=== PATIENT | male | born 1950 | race Caucasian/White ===

== ENCOUNTER 2017-02-06 16:38 | Inpatient (IN) | payer OTHER ==
[2017-02-06 19:02] LABS: BILIRUBIN - TOTAL 0.9 mg/dL (0.1-1.0); CREATININE 0.9 mg/dL (0.7-1.2); GLOBULIN (CALCULATION) 2.8 g/dL (2.2-4.2); MAGNESIUM 1.84 mg/dL (1.40-2.10); POTASSIUM 3.7 mmol/L (3.5-5.1); TOTAL PROTEIN 6.8 g/dL (6.4-8.3)
[2017-02-06 19:07] LABS: BASOPHIL 0.2 % (0-2); EOSINOPHIL 0.7 % (0-7); HCT 41.6 % (42.0-52.0); HGB 14.4 g/dl (13.2-18.0); LYMPHOCYTE 4.1 % (15-48); MCH 29.4 pg (25.0-31.0); MCHC 34.6 g/dL (32.0-36.0); MCV 84.9 fL (78.0-100.0); MONOCYTE 10.7 % (0-12); MPV 10.2 fL (6.0-9.5); NEUTROPHIL 84.3 % (41-80); PLT 204 K/uL (150-400); RDW 12.4 % (11.5-14.0); WBC 12.5 K/uL (4.0-10.5)
[2017-02-07 04:27] LABS: BASOPHIL 0.2 % (0-2); EOSINOPHIL 2.9 % (0-7); HCT 39.4 % (42.0-52.0); HGB 13.7 g/dl (13.2-18.0); LYMPHOCYTE 9.1 % (15-48); MCHC 34.8 g/dL (32.0-36.0); MCV 86.2 fL (78.0-100.0); MONOCYTE 11.7 % (0-12); MPV 9.8 fL (6.0-9.5); NEUTROPHIL 76.1 % (41-80); PLT 185 K/uL (150-400); RBC 4.57 M/uL (4.70-6.00); RDW 12.6 % (11.5-14.0); WBC 8.1 K/uL (4.0-10.5)
[2017-02-07 04:51] LABS: CREATININE 0.9 mg/dL (0.7-1.2); POTASSIUM 3.9 mmol/L (3.5-5.1)
== END 2017-02-08 13:40 | disposition home or self-care (01) | DRG 871 ==
LOC: FMS 16:38
PROVIDERS: ADMIT Internal Medicine Nephrology
DX: A41.9 Sepsis, unspecified organism (principal); J18.9 Pneumonia, unspecified organism; D83.8 Other common variable immunodeficiencies; Z79.899 Other long term (current) drug therapy; I10 Essential (primary) hypertension; G62.9 Polyneuropathy, unspecified; Z80.9 Family history of malignant neoplasm, unspecified; Z83.6 Family history of other diseases of the respiratory system; Z82.49 Family history of ischemic heart disease and other diseases of the circulatory system
CPT/HCPCS: 36415; 71020; 80048; 80053; 83735; 85025; 87040; 87070; 87205; 94010; 94640; J1956